=== PATIENT | female | born 1960 | race Caucasian/White ===

== ENCOUNTER 2017-04-04 13:20 | Emergency (ER) | payer MEDICAID ==
[2017-04-04 13:25] VITALS: BP 120/99; RESP 18; TEMP 99; O2SAT 99
--- NOTE | 2017-04-04 13:42 | ED PDOC ---
HPI: Skin/Bite Injury Time Seen by Provider: 04/04/17 13:38 Chief Complaint (Nursing): Bite Chief Complaint (Provider): Bite History Per: Patient History/Exam Limitations: no limitations Onset/Duration Of Symptoms: Mins (just prior to arrival) Current Symptoms Are (Timing): Still Present Location Of Injury: Left: Hand (5th digit), Anterior: Hand Severity: Moderate Additional Complaint(s): 56 year old female with a pertinent medical history of lupus, hypertension, asthma, COPD, and emphysema presents to the ED with complaints of a dog bite on her left hand that occurred just prior to arrival. She states that the dog was her neighbor's pet, and it's immunizations are up to date. Patient denies having active bleeding, other injuries, fevers, and chills. Patient's TDAP immunization is not up to date. PMD: Abraham Bills MD - Animal Bite Description Of The Attack: Playing With Animal Description Of The Animal: Neighbor's Pet Animal Appears: Well Animal's Immunization Status: UTD Animal Control Notified: No Past Medical History Reviewed: Historical Data, Nursing Documentation, Vital Signs Vital Signs: Last Vital Signs Temp 99.0 F 04/04/17 13:23 Pulse 122 H 04/04/17 13:23 Resp 18 04/04/17 13:23 BP 120/99 H 04/04/17 13:23 Pulse Ox 99 04/04/17 14:09 - Medical History PMH: Anemia, Arthritis, Asthma, Back Problems, COPD, Emphysema, Gall Bladder Disease, HTN, Hypercholesterolemia (questionable), Rheumatoid Arthritis Denies: Chronic Kidney Disease - Surgical History Surgical History: Cholecystectomy - Family History Family History: States: No Known Family Hx - Social History Current smoker - smoking cessation education provided: No Ex-Smoker (has not smoked in the last 12 months): Yes Alcohol: None Drugs: Denies - Home Medications Home Medications: Ambulatory Orders Medication Instructions Recorded Albuterol HFA [Ventolin HFA 90 2 puff IH Q6H PRN 08/07/14 mcg/actuation (8 g)] Omeprazole 40 mg PO DAILY 12/19/14 Verapamil Hydrochloride [Verapamil 180 mg PO DAILY 12/19/14 Sr] Albuterol 0.083% [Albuterol 0.083% 3 ml IH Q6H PRN 01/24/15 Inhal Amanda (2.5 mg/3 ml) UD] Linaclotide [Linzess] 145 mg PO DAILY PRN 01/24/15 Tiotropium [Spiriva] 18 mcg IH DAILY 01/24/15 Amoxicillin/Clavulanate Pota 1 tab PO BID #10 tab 01/26/15 [Augmentin 875 mg-125 mg] oxyCODONE/Acetaminophen [Percocet 1 ea PO Q8 PRN #0 tab 01/26/15 5/325 mg Tab] Prednisone 20 mg PO BID 5 Days 02/06/16 Amoxicillin/Clavulanate [Augmentin 1 tab PO BID #20 tab 04/04/17 875 MG-125 MG] - Allergies Allergies/Adverse Reactions: Allergies Allergy/AdvReac Type Severity Reaction Status Date / Time Sulfa (Sulfonamide Allergy RASH Verified 02/06/16 12:47 Antibiotics) Review of Systems Skin: Positive for: Other (right hand abrasion) Physical Exam - Reviewed Nursing Documentation Reviewed: Yes Vital Signs Reviewed: Yes - Physical Exam Appears: Positive for: Well, Non-toxic, No Acute Distress Head Exam: Positive for: ATRAUMATIC, NORMOCEPHALIC Skin: Positive for: Normal Color, Warm, Dry Respiratory: Positive for: Normal Breath Sounds. Negative for: Respiratory Distress Extremity: Positive for: Other (superficial evulsion on the left anterior distal 5th digit) Neurologic/Psych: Positive for: Alert, Oriented (3x) - ECG O2 Sat by Pulse Oximetry: 99 (RA) Pulse Ox Interpretation: Normal Medical Decision Making Medical Decision Makin:38 Initial impression: 56 year old female with an abrasion status post dog bite. Initial plan: * adacel .5ml IM * cleaned wound with antibacterial fluid * reevaluation Scribe Attestation: Documented by Cass Reid, acting as a scribe for Yesica J Kotuski PA-C. Provider Scribe Attestation: All medical record entries made by the Scribe were at my direction and personally dictated by me. I have reviewed the chart and agree that the record accurately reflects my personal performance of the history, physical exam, medical decision making, and the department course for this patient. I have also personally directed, reviewed, and agree with the discharge instructions and disposition. Disposition - Clinical Impression Clinical Impression: Animal bite wound, Tetanus toxoid vaccination administered at current visit - Disposition Disposition: Routine/Home Disposition Time: 14:13 Condition: STABLE Prescriptions: Amoxicillin/Clavulanate [Augmentin 875 MG-125 MG] 1 tab PO BID #20 tab Instructions: Animal Bite (ED) Forms: [employer] (Bahraini)
[2017-04-04 14:14] VITALS: PULSE 89
== END 2017-04-04 14:19 | disposition home or self-care (01) ==
LOC: H.ER 13:20
DX: S61.452A Open bite of left hand, initial encounter (principal); W54.0XXA Bitten by dog, initial encounter; Z23 Encounter for immunization; I10 Essential (primary) hypertension; E78.00 Pure hypercholesterolemia, unspecified

== ENCOUNTER 2017-04-05 20:27 | Emergency (ER) | payer MEDICAID ==
--- NOTE | 2017-04-05 21:23 | ED PDOC ---
HPI: Fever Additional Comments: 56 y/o F with PMH including SLE, HTN, Asthma presents for evaluation of right arm pain/fever. Patient was seen in ED yesterday after getting bit on the right 5th finger by her neighbor's dog. She was given a TDAP injection to the right deltoid and sent home with course of Augmentin. 8-10 hours after discharge from ED, patient reports gradually increasing right shoulder pain around the TDAP injection site. Currently pain is constant, 10/10 , "throbbing", non-radiating. Patinet also noted to be febrile during assessment but denies chills, cough, sore throat, abdominal pain, vomiting, diarrhea or dysuria. She took 400mg of ibuprofen 3 hours ago, which did not help. <Emir Demarco - Last Filed: 04/05/17 22:49> Supervising Attending Note <Emir Demarco - Last Filed: 04/05/17 22:49> - Supervising Attending Note The Documented history was done by the: Physician Foundation Assistant The documented physical exam was done by the: Physician Foundation Assistant, Attending Physician - Attestation: I have personally seen and examined this patient.: Yes I have fully participated in the care of the patient.: Yes I have reviewed all pertinent clinical information, including history, physical exam and plan: Yes <Elise Woodard - Last Filed: 04/06/17 15:07> - Notes: Notes:: RIGHT shoulder hyperaesthetic on palpation with no fluctuance and normal appearing post injection site. (Elise Woodard) Past Medical History - Medical History PMH: Anemia, Arthritis, Asthma, Back Problems, COPD, Emphysema, Gall Bladder Disease, HTN, Hypercholesterolemia (questionable), Rheumatoid Arthritis Denies: Chronic Kidney Disease - Surgical History Surgical History: Cholecystectomy - Family History Family History: States: Unknown Family Hx <Emir Demarco - Last Filed: 04/05/17 22:49> <Elise Woodard - Last Filed: 04/06/17 15:07> Vital Signs: Last Vital Signs Temp 101.3 F H 04/05/17 22:19 Pulse 90 04/05/17 22:34 Resp 16 04/05/17 22:34 BP 141/80 04/05/17 22:34 Pulse Ox 100 04/05/17 22:55 - Home Medications Home Medications: Ambulatory Orders Medication Instructions Recorded Albuterol HFA [Ventolin HFA 90 2 puff IH Q6H PRN 08/07/14 mcg/actuation (8 g)] Omeprazole 40 mg PO DAILY 12/19/14 Verapamil Hydrochloride [Verapamil 180 mg PO DAILY 12/19/14 Sr] Albuterol 0.083% [Albuterol 0.083% 3 ml IH Q6H PRN 01/24/15 Inhal Amanda (2.5 mg/3 ml) UD] Linaclotide [Linzess] 145 mg PO DAILY PRN 01/24/15 Tiotropium [Spiriva] 18 mcg IH DAILY 01/24/15 Amoxicillin/Clavulanate Pota 1 tab PO BID #10 tab 01/26/15 [Augmentin 875 mg-125 mg] oxyCODONE/Acetaminophen [Percocet 1 ea PO Q8 PRN #0 tab 01/26/15 5/325 mg Tab] Prednisone 20 mg PO BID 5 Days 02/06/16 Amoxicillin/Clavulanate [Augmentin 1 tab PO BID #20 tab 04/04/17 875 MG-125 MG] Ibuprofen [Motrin Tab] 600 mg PO Q8 PRN #60 tab 04/05/17 traMADol [Ultram] 50 mg PO TID PRN #15 tab 04/05/17 - Allergies Allergies/Adverse Reactions: Allergies Allergy/AdvReac Type Severity Reaction Status Date / Time Sulfa (Sulfonamide Allergy RASH Verified 02/06/16 12:47 Antibiotics) Review of Systems Constitutional: Positive for: Fever ENT: Negative for: Nose Congestion, Throat Pain Respiratory: Negative for: Cough, Shortness of Breath, Wheezing Gastrointestinal: Negative for: Vomiting, Abdominal Pain, Diarrhea Genitourinary Female: Negative for: Dysuria, Frequency Musculoskeletal: Positive for: Other (Right shoulder pain) Skin: Negative for: Rash <Emir Demarco - Last Filed: 04/05/17 22:49> Physical Exam - Reviewed Vital Signs Reviewed: Yes - Physical Exam Appears: Positive for: No Acute Distress, Uncomfortable Head Exam: Positive for: ATRAUMATIC, NORMAL INSPECTION, NORMOCEPHALIC Skin: Positive for: Warm, Dry Cardiovascular/Chest: Positive for: Tachycardia, Other (Regular rhythm) Respiratory: Positive for: Normal Breath Sounds. Negative for: Crackles, Rales , Wheezing, Respiratory Distress Pulses-Radial (L): 2+ Pulses-Radial (R): 2+ Gastrointestinal/Abdominal: Positive for: Bowel Sounds (Normal), Soft. Negative for: Tenderness, Distended, Guarding, Rebound Extremity: Positive for: Capillary Refill (<2s), Other (Right fifth finger bite injury present with no active bleeding or purulent drainage and no surrounding erythema. Significant tenderness present on right deltoid with no surrounding erythema. ). Negative for: Pedal Edema Neurologic/Psych: Positive for: Alert, Oriented (x3) <Emir Demarco - Last Filed: 04/05/17 22:49> - Laboratory Results Result Diagrams: 04/05/17 21:28 04/05/17 21:28 - ECG O2 Sat by Pulse Oximetry: 100 <Emir Demarco - Last Filed: 04/05/17 22:49> - Laboratory Results Result Diagrams: 04/05/17 21:28 04/05/17 21:28 <Elise Woodard - Last Filed: 04/06/17 15:07> Medical Decision Making <Emir Demarco - Last Filed: 04/05/17 22:49> <Elise Woodard - Last Filed: 04/06/17 15:07> Medical Decision Making: CBC within normal limits. CMP reveals mild hypokalemia of 3.3. Pain slightly improved compared to initial assessment. Pain/low grade fever likely secondary to TDap injection. (Emir Demarco) Disposition - Patient ED Disposition Is Patient to be Admitted: No Counseled Patient/Family Regarding: Studies Performed, Diagnosis, Need For Followup, Rx Given - Disposition Disposition: Routine/Home Disposition Time: 22:53 <Emir Demarco - Last Filed: 04/05/17 22:49> <Elise Woodard - Last Filed: 04/06/17 15:07> - Clinical Impression Clinical Impression: Fever, Adverse reaction to vaccine, Hypokalemia - Disposition Referrals: Abraham Bills MD [Staff Provider] - Condition: GOOD Additional Instructions: Apply ice pack to affected area. Follow up with your PCP after discharge. Prescriptions: Ibuprofen [Motrin Tab] 600 mg PO Q8 PRN #60 tab PRN Reason: Pain, Moderate (4-7) traMADol [Ultram] 50 mg PO TID PRN #15 tab PRN Reason: SEVERE PAIN ONLY Instructions: Fever in Adults (ED), Hypokalemia (ED) Forms: [employer] (Kazakh)
[2017-04-05 22:02] LABS: BASO % 0.4 % (0.0-2.0); EOS % 0.1 % (0.0-4.0); HEMATOCRIT 41.9 % (34.0-47.0); LYMPH # 1.2 K/uL (1.0-4.3); LYMPH % 16.9 % (20.0-40.0); MEAN CELL VOLUME 91.1 fl (81.0-99.0); MEAN CORPUSCULAR HEMOGLOBIN 30.5 pg (27.0-31.0); MEAN CORPUSCULAR HGB CONC 33.5 g/dL (33.0-37.0); MEAN PLATELET VOLUME 9.9 fl (7.2-11.7); MONO # 0.4 K/uL (0.0-0.8); MONO % 5.3 % (0.0-10.0); NEUT # 5.3 K/uL (1.8-7.0); NEUT % 77.3 % (50.0-75.0); RED CELL DISTRIBUTION WIDTH 12.3 % (11.5-14.5); WHITE BLOOD COUNT 6.8 K/uL (4.8-10.8)
[2017-04-05 22:08] LABS: ALB/GLOB RATIO 1.3 (1.0-2.1); ALKALINE PHOSPHATASE 132 U/L (38-126); ALT/SGPT 51 U/L (9-52); AST/SGOT 26 U/L (14-36); BILIRUBIN,TOTAL 0.5 mg/dl (0.2-1.3); BLOOD UREA NITROGEN 12 mg/dl (7-17); CALCIUM 9.8 mg/dL (8.4-10.2); CARBON DIOXIDE 24 mmol/L (22-30); CHLORIDE 105 mmol/L (98-107); GFR AFRICAN-AMERICAN > 60; GLUCOSE,RANDOM 112 mg/dL (65-105); POTASSIUM 3.3 MMOL/L (3.6-5.0); SODIUM 140 mmol/l (132-148); TOTAL PROTEIN 7.6 G/DL (6.3-8.2)
[2017-04-05 22:34] VITALS: BP 141/80; PULSE 90; RESP 16; TEMP 101.3
[2017-04-05 22:49] VITALS: O2SAT 100
== END 2017-04-05 23:08 | disposition home or self-care (01) ==
LOC: H.ER 20:27
DX: R50.9 Fever, unspecified (principal); E87.6 Hypokalemia; I10 Essential (primary) hypertension; M32.9 Systemic lupus erythematosus, unspecified
CPT/HCPCS: 80053; 83605; 85025; 87040; 96374; 99283; J1885

== ENCOUNTER 2017-06-17 14:29 | Emergency (ER) | payer MEDICAID ==
[2017-06-17 14:36] VITALS: BP 105/71; PULSE 86; RESP 16; TEMP 97.5; O2SAT 99
--- NOTE | 2017-06-17 15:13 | ED PDOC ---
HPI: Dental Pain/Injury Time Seen by Provider: 06/17/17 14:38 Chief Complaint (Nursing): Abnormal Skin Integrity Chief Complaint (Provider): Dental Pain History Per: Patient History/Exam Limitations: no limitations Onset/Duration Of Symptoms: Days (x2) Current Symptoms Are (Timing): Still Present Additional Complaint(s): Paz Dudley is a 56 year old female who presents to the ED complaining of left sided jaw pain and swelling ongoing for 2 days. Patient has pain when trying to open and close mouth. She has not taken anything for pain relief. Patient denies fever or chills. She is tolerating liquids and solids. PMD: Abraham Bills MD Past Medical History Reviewed: Historical Data, Nursing Documentation, Vital Signs Vital Signs: Last Vital Signs Temp 97.5 F L 06/17/17 14:34 Pulse 86 06/17/17 14:34 Resp 16 06/17/17 14:34 BP 105/71 06/17/17 14:34 Pulse Ox 99 06/17/17 14:34 - Medical History PMH: Anemia, Arthritis, Asthma, Back Problems, COPD, HTN, Rheumatoid Arthritis Other PMH: Lupus - Surgical History Surgical History: Cholecystectomy Other surgeries: Hysterectomy, cataracts, right foot surgery, right hip replacement, right eye surgery - Family History Family History: States: No Known Family Hx - Living Arrangements Living Arrangements: With Family - Social History Current smoker - smoking cessation education provided: No Alcohol: None Drugs: Denies - Home Medications Home Medications: Ambulatory Orders Medication Instructions Recorded Albuterol HFA [Ventolin HFA 90 2 puff IH Q6H PRN 08/07/14 mcg/actuation (8 g)] Omeprazole 40 mg PO DAILY 12/19/14 Verapamil Hydrochloride [Verapamil 180 mg PO DAILY 12/19/14 Sr] Albuterol 0.083% [Albuterol 0.083% 3 ml IH Q6H PRN 01/24/15 Inhal Amanda (2.5 mg/3 ml) UD] Linaclotide [Linzess] 145 mg PO DAILY PRN 01/24/15 Tiotropium [Spiriva] 18 mcg IH DAILY 01/24/15 Amoxicillin/Clavulanate Pota 1 tab PO BID #10 tab 01/26/15 [Augmentin 875 mg-125 mg] oxyCODONE/Acetaminophen [Percocet 1 ea PO Q8 PRN #0 tab 01/26/15 5/325 mg Tab] Prednisone 20 mg PO BID 5 Days tablet 02/06/16 Amoxicillin/Clavulanate [Augmentin 1 tab PO BID #20 tab 04/04/17 875 MG-125 MG] Ibuprofen [Motrin Tab] 600 mg PO Q8 PRN #60 tab 04/05/17 traMADol [Ultram] 50 mg PO TID PRN #15 tab 04/05/17 Clindamycin [Cleocin] 300 mg PO TID #21 cap 06/17/17 Ibuprofen [Motrin] 600 mg PO Q6 PRN #15 tab 06/17/17 - Allergies Allergies/Adverse Reactions: Allergies Allergy/AdvReac Type Severity Reaction Status Date / Time Sulfa (Sulfonamide Allergy RASH Verified 02/06/16 12:47 Antibiotics) Review of Systems ROS Statement: Except As Marked, All Systems Reviewed And Found Negative Constitutional: Negative for: Fever ENT: Positive for: Mouth Pain (left lower jaw), Mouth Swelling (left lower). Negative for: Ear Pain Neurological: Negative for: Headache, Dizziness Physical Exam - Reviewed Nursing Documentation Reviewed: Yes Vital Signs Reviewed: Yes - Physical Exam Appears: Positive for: Well, Non-toxic, No Acute Distress Head Exam: Positive for: ATRAUMATIC, NORMAL INSPECTION, NORMOCEPHALIC Skin: Positive for: Normal Color. Negative for: Rash Eye Exam: Positive for: Normal appearance ENT: Positive for: Other (Swelling to left lower mandible consistent w/ dental abscess, left lower molar tooth #17 is missing, dental caries noted to remaining left lower molar teeth) Cardiovascular/Chest: Positive for: Regular Rate, Rhythm Respiratory: Positive for: Normal Breath Sounds Lymphatic: Negative for: Adenopathy Neurologic/Psych: Positive for: Alert, Oriented - ECG O2 Sat by Pulse Oximetry: 99 (RA) Pulse Ox Interpretation: Normal Medical Decision Making Medical Decision Making: Time: 15:02 Initial Impression: 56 year old female with dental abscess Plan: --Motrin 600 mg PO Motrin dose helped with pain. Prescription given for Motrin and clindamycin. Patient was instructed to follow up as soon as possible with dentist. Scribe Attestation: Documented by Haroon Denney, acting as a scribe for Elise Villalpando PA-C Provider Scribe Attestation: All medical record entries made by the Scribe were at my direction and personally dictated by me. I have reviewed the chart and agree that the record accurately reflects my personal performance of the history, physical exam, medical decision making, and the department course for this patient. I have also personally directed, reviewed, and agree with the discharge instructions and disposition. Disposition - Clinical Impression Clinical Impression: Dental abscess - Patient ED Disposition Is Patient to be Admitted: No Counseled Patient/Family Regarding: Diagnosis, Need For Followup - Disposition Referrals: [facility] [Outside] Disposition: Routine/Home Disposition Time: 15:52 Condition: STABLE Additional Instructions: Take prescription medications as directed. Follow-up in one to 2 days with dentist. Prescriptions: Clindamycin [Cleocin] 300 mg PO TID #21 cap Ibuprofen [Motrin] 600 mg PO Q6 PRN #15 tab PRN Reason: Pain, Moderate (4-7) Instructions: Dental Abscess (ED) Forms: [employer] ([place]ay[place] Islander)
== END 2017-06-17 16:42 | disposition home or self-care (01) ==
LOC: H.ER 14:29
DX: K04.7 Periapical abscess without sinus (principal); I10 Essential (primary) hypertension; J44.9 Chronic obstructive pulmonary disease, unspecified; M06.9 Rheumatoid arthritis, unspecified; M32.9 Systemic lupus erythematosus, unspecified; Z96.641 Presence of right artificial hip joint

== ENCOUNTER 2017-11-30 19:02 | Emergency (ER) | payer MEDICAID ==
[2017-11-30 19:09] VITALS: BP 130/88; PULSE 97; RESP 17; TEMP 98.5; O2SAT 99
[2017-11-30] MEDS ORDERED: Naproxen 500 MG TAB PO STA (19:48)
[2017-11-30] MEDS ORDERED: Naproxen 500 MG TAB PO ONE (20:21)
--- NOTE | 2017-11-30 21:10 | ED PDOC ---
Lower Extremity Pain/Injury Time Seen by Provider: 11/30/17 19:19 Chief Complaint (Nursing): Lower Extremity Problem/Injury Chief Complaint (Provider): Left knee and hip pain History Per: Patient History/Exam Limitations: no limitations Onset/Duration Of Symptoms: Days (x2) Current Symptoms Are (Timing): Still Present Additional Complaint(s): Patient reports left knee pain and left hip pain, onset yesterday after she sustained a fall. States she fell in her home into a sitting position, twisting left knee in the process. Now complains of worsening left hip and knee pain. There was no LOC or head trauma. Otherwise: (-) neck pain, (-) back pain, (-) abdominal pain, (-) other injury, (-) numbness. PMD: Abraham Bills Past Medical History Reviewed: Historical Data, Nursing Documentation, Vital Signs Vital Signs: Last Vital Signs Temp 98.5 F 11/30/17 19:07 Pulse 97 H 11/30/17 19:07 Resp 17 11/30/17 19:07 BP 130/88 11/30/17 19:07 Pulse Ox 99 11/30/17 19:07 - Medical History PMH: Anemia, Arthritis, Asthma, Back Problems, COPD, Emphysema, Gall Bladder Disease, HTN, Hypercholesterolemia (questionable), Rheumatoid Arthritis Denies: Chronic Kidney Disease - Surgical History Surgical History: Cholecystectomy - Family History Family History: States: Unknown Family Hx - Social History Ex-Smoker (has not smoked in the last 12 months): Yes Alcohol: None Drugs: Denies - Home Medications Home Medications: Ambulatory Orders Medication Instructions Recorded Albuterol HFA [Ventolin HFA 90 2 puff IH Q6H PRN 08/07/14 mcg/actuation (8 g)] Omeprazole 40 mg PO DAILY 12/19/14 Verapamil Hydrochloride [Verapamil 180 mg PO DAILY 12/19/14 Sr] Albuterol 0.083% [Albuterol 0.083% 3 ml IH Q6H PRN 01/24/15 Inhal Amanda (2.5 mg/3 ml) UD] Linaclotide [Linzess] 145 mg PO DAILY PRN 01/24/15 Tiotropium [Spiriva] 18 mcg IH DAILY 01/24/15 Amoxicillin/Clavulanate Pota 1 tab PO BID #10 tab 01/26/15 [Augmentin 875 mg-125 mg] oxyCODONE/Acetaminophen [Percocet 1 ea PO Q8 PRN #0 tab 01/26/15 5/325 mg Tab] Prednisone 20 mg PO BID 5 Days tablet 02/06/16 Amoxicillin/Clavulanate [Augmentin 1 tab PO BID #20 tab 04/04/17 875 MG-125 MG] Ibuprofen [Motrin Tab] 600 mg PO Q8 PRN #60 tab 04/05/17 traMADol [Ultram] 50 mg PO TID PRN #15 tab 04/05/17 Clindamycin [Cleocin] 300 mg PO TID #21 cap 06/17/17 Ibuprofen [Motrin] 600 mg PO Q6 PRN #15 tab 06/17/17 Meloxicam [Mobic] 15 mg PO DAILY PRN #30 tab 11/30/17 - Allergies Allergies/Adverse Reactions: Allergies Allergy/AdvReac Type Severity Reaction Status Date / Time Sulfa (Sulfonamide Allergy RASH Verified 02/06/16 12:47 Antibiotics) Review of Systems ROS Statement: Except As Marked, All Systems Reviewed And Found Negative Gastrointestinal: Negative for: Abdominal Pain Musculoskeletal: Positive for: Leg Pain (left knee and hip). Negative for: Neck Pain, Back Pain Neurological: Negative for: Numbness Physical Exam - Reviewed Nursing Documentation Reviewed: Yes Vital Signs Reviewed: Yes - Physical Exam Comments: GENERAL APPEARANCE: Patient is awake, alert, oriented x 3, in no acute distress. SKIN: Warm, dry; (-) cyanosis. EYES: (-) conjunctival pallor. ENMT: Mucous membranes moist. NECK: (-) tenderness, (-) stiffness, (-) lymphadenopathy. CHEST AND RESPIRATORY: (-) rales, (-) rhonchi, (-) wheezes; breath sounds equal bilaterally. HEART AND CARDIOVASCULAR: (-) irregularity; (-) murmur, (-) gallop. ABDOMEN AND GI: Soft; (-) tenderness; (-) palpable mass. LEFT LOWER EXTREMITY: (+) tenderness and mild swelling to the left knee, limited ROM secondary to pain, (-) laxity on varus and valgus stress test, (-) laxity on anterior and posterior drawer test. (-) Hip / pelvic tenderness, (-) deformity. Distal pulses good bilaterally. NEURO AND PSYCH: Mental status as above. Intact sensation bilaterally. - ECG O2 Sat by Pulse Oximetry: 99 (RA) Pulse Ox Interpretation: Normal Medical Decision Making Medical Decision Making: Impression: Fall, Left knee pain, Left hip pain Time: 19:48 Plan: * Naproxen 500 mg PO * X-ray left hip w/ pelvis * X-ray left knee XR L HIP: Noted left hip replacement. no fracture, no dislocation, as read by PA XR L KNEE: soft tissue swelling to joint, no fracture, as read by PA. X-Ray results discussed in great detail. Patient counseled regarding dx of hip pain and knee contusion. Advised to follow RICE instructions. Garza dressing applied to left knee. Crutches provided with instructions. Referral to ortho provided. Advised to follow up with orthopedics in 1-2 days without fail. Advised to take medication as prescribed. Return to the emergency room at any time for any new or worsening symptoms. Patient states she fully agrees with and understands discharge instructions. States that she agrees with the plan and disposition. Verbalized and repeated discharge instructions and plan. I have given the patient opportunity to ask any additional questions. Scribe Attestation: Documented by Shaniqua De Jesus, acting as a scribe for Marcy Castillo PA-C. Provider Scribe Attestation: All medical record entries made by the Scribe were at my direction and personally dictated by me. I have reviewed the chart and agree that the record accurately reflects my personal performance of the history, physical exam, medical decision making, and the department course for this patient. I have also personally directed, reviewed, and agree with the discharge instructions and disposition. Disposition - Clinical Impression Clinical Impression: Hip pain, Knee contusion - Patient ED Disposition Is Patient to be Admitted: No Counseled Patient/Family Regarding: Studies Performed, Diagnosis, Need For Followup, Rx Given - Disposition Referrals: Tony Cavanaugh III, MD [Staff Provider] - Disposition: Routine/Home Disposition Time: 20:40 Condition: STABLE Additional Instructions: Thank you for letting us take care of you today. You were treated for hip pain, knee contusion, s/p fall. The emergency medical care you received today was directed at your acute symptoms. If you were prescribed any medication, please fill it and take as directed. It may take several days for your symptoms to resolve. Return to the Emergency Department if your symptoms worsen, do not improve, or if you have any other problems. Please contact your doctor in 2 days for re-evaluation and follow up / or call one of the physicians/clinics you have been referred to that are listed on the Patient Visit Information form that is included in your discharge packet. Bring any paperwork you were given at discharge with you along with any medications you are taking to your follow up visit. Our treatment cannot replace ongoing medical care by a primary care provider (PCP) outside of the emergency department. Thank you for allowing the [facility] team to be part of your care today. Prescriptions: Meloxicam [Mobic] 15 mg PO DAILY PRN #30 tab PRN Reason: Pain, Moderate (4-7) Instructions: Contusion (DC), Hip Pain Forms: [employer] (Telugu), [facility] ED School/Work Excuse - POA Present On Arrival: Falls Or Trauma - PA / CAMPUS EXECUTIVE DIRECTOR / Resident Statement /DO has reviewed & agrees with the documentation as recorded.
--- NOTE | 2017-12-01 08:46 | RAD ---
PROCEDURE: Left Hip X-ray Radiographs. HISTORY: pain COMPARISON: CT angiography of the abdomen, pelvis and bilateral lower extremities dated 03/25/2017. FINDINGS: BONES: Prior right hip arthroplasty. No periprosthetic lucency. No acute fracture. JOINTS: Normal. SOFT TISSUES: Normal. OTHER FINDINGS: None. IMPRESSION: No demonstrated acute fracture or dislocation. Prior right hip arthroplasty.
--- NOTE | 2017-12-01 08:47 | RAD ---
PROCEDURE: Left Knee Radiographs. HISTORY: Pain. COMPARISON: CT angiography of the abdomen, pelvis and bilateral lower extremities dated 03/25/2017. FINDINGS: BONES: No acute fracture. JOINTS: Unremarkable. JOINT EFFUSION: None. OTHER FINDINGS: None. IMPRESSION: No demonstrated fracture or dislocation.
== END 2017-11-30 21:14 | disposition home or self-care (01) ==
LOC: H.ER 19:02
DX: S80.02XA Contusion of left knee, initial encounter (principal); M25.552 Pain in left hip; Z96.643 Presence of artificial hip joint, bilateral; Z87.891 Personal history of nicotine dependence; I10 Essential (primary) hypertension; E78.00 Pure hypercholesterolemia, unspecified; J44.9 Chronic obstructive pulmonary disease, unspecified; W18.30XA Fall on same level, unspecified, initial encounter; Y92.009 Unspecified place in unspecified non-institutional (private) residence as the place of occurrence of the external cause